=== PATIENT | female | born 1985 | race African-American/Black ===

== ENCOUNTER 2016-06-13 19:10 | Emergency (ER) | payer MEDICAID ==
[~2016-06-13 19:10] MED LIST: ALBUTEROL17 GM INH; FLONASE ALLERG9.9 ML; IBUPROFEN800 MG PO; KEFLEX500 MG PO; MOTRIN PO; MOTRIN600 M1 PO; MUCINEX D ER T1 EAC1 PO; NO MEDICATIONS; ROBAXIN PO; TESSALON200 MG PO; VOLTAREN50 MG PO; VOLTAREN75 MG PO; ZOFRAN ODT4 MG/UDTAB SL; ZYRTEC PO
== END 2016-06-13 19:20 | disposition home or self-care (01) ==
LOC: SED 19:10
DX: H92.01 Otalgia, right ear (principal); Z88.8 Allergy status to other drugs, medicaments and biological substances
CPT/HCPCS: 99282

== ENCOUNTER 2016-06-28 18:19 | Emergency (ER) | payer MEDICAID ==
--- NOTE | ~2016-06-28 | CR63 ---
[facility]. [facility] A Service of [facility] & [facility] RADIOLOGY TEXT RESULTS PATIENT: MICHELET HANEY LOCATION: SED : [birth year] UNIT #: [id number] AGE: [address]: Cassidy Hare APRN SEX: F ORDER DR: [id number] [address] [address] [id number] E MR#: [id number] Acc #: [id number] NAME: MICHELET HANEY : 1985 SEX: F STUDY DATE/TIME: 06/28/2016 18:05 UNIT: SED ROOM: STUDY DESCRIPTION: CR Chest 2 View Attending Physician: Cassidy Hare A.P.R.N. Ordering Physician: Cassidy Bell A.P.R.N. Primary Care Physician: [facility], [facility]. MEDICAL IMAGING REPORT This report is preliminary unless electronic signature is present. EXAM Chest HISTORY cough, congestion, sore throat, acute presentation FINDINGS PA and lateral examination of the chest upright shows a good expansion of the parenchyma with a normal distribution of the pulmonary vascularity. There is no indication of congestion, effusion, infiltrate, tumor, or nodular density. The pleural reflections and diaphragmatic contours are normal. The cardiac silhouette and mediastinal anatomy is within normal limits. IMPRESSION Normal chest. Dictated by... Jeannie Grissom M.D. THIS IS AN ELECTRONICALLY VERIFIED REPORT Jeannie Grissom M.D. at 06/30/2016 7:19 PM Audelia TD: 06/29/2016 13:33 JOB #: [id number] MEDICAL IMAGING REPORT Page 1 of 1
== END 2016-06-28 19:18 | disposition home or self-care (01) ==
LOC: SED 18:19
DX: R05 Cough (principal); Z91.018 Allergy to other foods
CPT/HCPCS: 71020; 99283

== ENCOUNTER 2016-10-30 17:44 | Emergency (ER) | payer MEDICAID ==
--- NOTE | ~2016-10-30 | CR111 ---
[facility]. [facility] A Service of [facility] & [facility] RADIOLOGY TEXT RESULTS PATIENT: MICHELET HANEY LOCATION: SED : [birth year] UNIT #: [id number] AGE: [address]: Velma Yusuf SEX: F ORDER DR: [id number] [address] [address] [id number] E MR#: [id number] Acc #: [id number] NAME: MICHELET HANEY : 1985 SEX: F STUDY DATE/TIME: 10/30/2016 19:03 UNIT: SED ROOM: STUDY DESCRIPTION: CR Finger 2 View 3rd Rt Attending Physician: Velma Yusuf Pa-C Referring Physician: Staff Doctor Not On Ordering Physician: Ed Yared Bruner M.D. Primary Care Physician: [facility], [facility]. MEDICAL IMAGING REPORT This report is preliminary unless electronic signature is present. EXAM Right third finger, 10/30/2016, 1903 hours. CLINICAL HISTORY 31-year-old woman with complaint of a painful swollen finger for 7-8 days. No known injury. COMPARISON None. FINDINGS AP, lateral and oblique views demonstrate mild diffuse soft tissue swelling. The bone density is normal. There is no fracture, dislocation or erosive change. No foreign body. IMPRESSION Mild diffuse soft tissue swelling with no fracture, dislocation, erosive change or foreign body. Dictated by... Sherrie Toro M.D. THIS IS AN ELECTRONICALLY VERIFIED REPORT Sherrie Toro M.D. at 10/31/2016 9:27 AM Misael TD: 10/30/2016 23:27 JOB #: [id number] MEDICAL IMAGING REPORT Page 1 of 1
== END 2016-10-30 19:43 | disposition home or self-care (01) ==
LOC: SED 17:44
DX: S63.632A Sprain of interphalangeal joint of right middle finger, initial encounter (principal); J45.909 Unspecified asthma, uncomplicated; W23.0XXA Caught, crushed, jammed, or pinched between moving objects, initial encounter; Y92.9 Unspecified place or not applicable
CPT/HCPCS: 29130; 73140; 99283